=== PATIENT | female | born 1980 | race Caucasian/White ===

== ENCOUNTER 2017-07-03 22:23 | Outpatient (CLI) | payer OTHER ==
[~2017-07-03] VITALS: Ht 167.6 cm; Wt 141.0 kg
[2017-07-03 23:28] VITALS: Ht 167.6 cm; Wt 141.0 kg
[2017-07-03 23:29] VITALS: BP 114/62; RESP 18
[2017-07-04] MEDS ORDERED: DIPHENHYDRAMINE 50 MG INJ IM ONE (00:30)
[2017-07-04] MEDS ORDERED: URSODIOL 300 MG CAP PO ONE (00:30)
[2017-07-04 00:45] LABS: ALBUMIN 3.1 g/dl (3.3-4.9); ALBUMIN/GLOBULIN RATIO 0.93; BILIRUBIN,INDIRECT 0.1 mg/dl (0-1.1); BILIRUBIN,TOTAL 0.1 mg/dl (0.2-1.3); CALCIUM 9.1 mg/dl (8.4-10.2); CREATININE 0.78 mg/dl (0.44-1.00); TOTAL PROTEIN 6.4 g/dl (6.1-8.1)
[2017-07-04] MEDS ORDERED: DIPHENHYDRAMINE 25 MG CAP PO ONE (01:00)
[2017-07-04 01:13] LABS: BASOPHILS % 0.2 % (0.0-2.0); EOSINOPHILS % 0.1 % (0.0-7.0); HEMATOCRIT 32.9 % (37.0-47.0); HEMOGLOBIN 10.8 g/dl (12.0-16.0); LYMPHOCYTES # 1.8 10^3/ul (0.8-2.9); LYMPHOCYTES % 20.8 % (15.0-51.0); MEAN CORPUSCULAR HGB CONC 32.8 g/dl (32.0-37.0); MEAN CORPUSCULAR VOLUME 88.4 fl (82.0-101.0); MEAN PLATELET VOLUME 11.3 fl (7.4-10.4); MONOCYTE # 0.6 10^3/ul (0.3-0.9); MONOCYTES % 6.4 % (0.0-11.0); NEUTROPHIL # 6.3 10^3/ul (1.6-7.5); PLATELET COUNT 203 10^3/UL (140-415); RED BLOOD COUNT 3.72 10^6/ul (4.20-5.40); WHITE BLOOD COUNT 8.7 10^3/ul (4.8-10.8)
--- NOTE | 2017-07-04 04:38 | TRIAGE ---
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 ANDRÉS AT BEDSIDE ASSISTING W/ U/S ADJUSTMENT Datetime: 07/04/2017 01:00 Stage of : OB Triage Labor Evaluation Frequency: X0 Monitor Mode: External Resting Tone [place]: Relaxed Heart Rate FHR Baseline Rate: 140 Monitor Mode: External US Variability: Moderate 6-25 bpm Accelerations: 15X15 Decelerations: None Category: Category I Datetime: 07/04/2017 00:00 Stage of : OB Triage Labor Evaluation Frequency: X0 Monitor Mode: External Resting Tone [place]: Relaxed Contraction Comments: IRRITABILITY Heart Rate FHR Baseline Rate: 140 Monitor Mode: External US Variability: Moderate 6-25 bpm Accelerations: 15X15 Decelerations: None Category: Category I Datetime: 07/03/2017 23:01 Assessment Type: Triage Maternal Assessment Level of Consciousness: Fully Conscious DTR's/Clonus: DTRs 2+; No Clonus Headache: Denies Blurred Vision: No Respiratory Effort: Unlabored; Regular Rhythm; Equal Expansion Breath Sounds, Left: Clear and Equal Breath Sounds, Right: Clear and Equal Nausea/Vomiting: Denies RUQ Epigastric Pain: Denies Lower Extremities Edema: Bilateral Lower Extremities Degree: 1+ Upper Extremities Edema: None Degree: None Facial Edema: None Temperature Route: Oral Fall Risk Assessment History of Falling: (0) No Secondary Diagnosis: (0) No Ambulatory Aid: (0) Bedrest/Nurse Assist IV Therapy: (0) No Gait: (0) Normal/Bedrest/Immobile Mental Status: (0) Oriented to Own Ability Fall Score: 0 Fall Risk Score Definition: No Risk: No action required Comment: GA 29.0 WKS TWIN W/ GDM DIET CONTROLLED. PT PRESENTED HERSELF TO TRIAGE W/ C/O GENERALIZED ITCHING _ RASHES. HX OF CHOLESTASIS 2ND . Pain Assessment Pain Scale: 0 Pain Presence: None/Denies Pain Type: N/A Pain Goal: 0 Datetime: 07/03/2017 22:51 EGA: 29.0 Datetime: 07/03/2017 22:50 Stage of : OB Triage Time of Arrival: 07/03/2017 22:15 Arrived By: Wheelchair Arrived From: Home Chief Complaint: GENERALIZED ITCHING _ RASHES Movement: Present Contractions: Denies/Absent Rupture of Membranes: Denies Vaginal Bleeding: None Vaginal Discharge: Denies Recent Sexual Intercouse: Denies Abdominal Trauma: Not Applicable Patient Complaints: Other Time Provider Notified: 07/03/2017 23:32 Provider Notified: LIZY Initial Plan: KELLY STONER NOTIFY MD
--- NOTE | 2017-07-04 08:01 | PN ---
Triage Information Date/Time Reason for visit: Generalized rash with itching Weeks of Gestation 29 /Para Diabetes: gestational Hypertention: none Additional information 37 Year-old with SIUP at 29 wks with twins, GDM A1 and h/o cholestasis in prior presents with a chief complaint of generalized rash and itching. She has been receiving her care with Dr. galvez. She states good movement. She denies nausea, vomiting, shortness of breath, chest pain, and abdominal pain between contractions, headache, visual changes, vaginal bleeding or LOF. Objective Vital Signs Date Time Temp Pulse Resp B/P Pulse Ox O2 Delivery O2 Flow Rate FiO2 07/03/17 23:29 98.6 18 114/62 Room Air Contractions: None Exam General: Patient appears well, alert and oriented, NAD, appropriate mood and affect Skin: Generalized maculopapular rash ABD: gravid, soft, non-tender. Back: No CVA tenderness (B/L) LE: No clubbing, cyanosis, edema, thigh or calf tenderness bilaterally FHTs: 135 and 140 bpm , moderate variability with acceleration, no deceleration- category I Contractions: None Results/Medications Result Diagram: 07/03/17 2358 07/04/17 0002 Results 24 hrs Laboratory Tests Test 07/03/17 23:58 07/04/17 00:02 White Blood Count 8.7 Red Blood Count 3.72 L Hemoglobin 10.8 L Hematocrit 32.9 L Mean Corpuscular Volume 88.4 Mean Corpuscular Hemoglobin 29.0 Mean Corpuscular Hemoglobin Concent 32.8 Red Cell Distribution Width 13.0 Platelet Count 203 Mean Platelet Volume 11.3 H Neutrophils % 72.0 Lymphocytes % 20.8 Monocytes % 6.4 Eosinophils % 0.1 Basophils % 0.2 Nucleated Red Blood Cells % 0.0 Neutrophils # 6.3 Lymphocytes # 1.8 Monocytes # 0.6 Eosinophils # 0.0 Basophils # 0.0 Nucleated Red Blood Cells # 0.0 Sodium Level 138 Potassium Level 4.0 Chloride Level 106 Carbon Dioxide Level 26 Anion Gap 10 Blood Urea Nitrogen 11 Creatinine 0.78 Glucose Level 155 Calcium Level 9.1 Total Bilirubin 0.1 L Direct Bilirubin 0.00 Indirect Bilirubin 0.1 Aspartate Amino Transf (AST/SGOT) 23 Alanine Aminotransferase (ALT/SGPT) 44 Alkaline Phosphatase 93 Total Protein 6.4 Albumin 3.1 L Globulin 3.30 H Albumin/Globulin Ratio 0.93 Disposition: Discharge Assessment/Plan 37 Year-old with SIUP at 29 wks with twins, GDM A1 and h/o cholestasis in prior with generalized rash and itching - FHR: No sign of metabolic acidosis- Category I - Continuous EFM, toco - Contractions: None. - CBC, CMP: wnl, Bile acid is pending - Benadryl 25 mg PO given. Rx for actigal and hydroxyzine given. - Symptoms and sign of labor, preeclampsia, kick count discussed with patient, she voiced understanding. All of her questions answered. - Patient was discharged home in stable condition with the appropriate discharge instructions provided. I would like patient to have close follow-up with her primary physician or outpatient clinic in 1-2 days or return to the ER for worsening symptoms or any other urgent concerns. FLORY CAMEJO Jul 04, 2017 08:01
== END 2017-07-04 03:09 | disposition home or self-care (01) ==
LOC: OBT 22:23 → L-D 22:26 → OBT 07-04 03:09
PROVIDERS: ATTEND Specialist
DX: O26.893 Other specified pregnancy related conditions, third trimester (principal); Z3A.29 29 weeks gestation of pregnancy; R21 Rash and other nonspecific skin eruption; L29.9 Pruritus, unspecified
CPT/HCPCS: 80053; 83789; 85025; Z7500; Z7610; G0463

== ENCOUNTER 2017-07-12 23:08 | Outpatient (CLI) | payer OTHER ==
[~2017-07-12] VITALS: Ht 167.6 cm; Wt 141.5 kg
[2017-07-12 23:41] VITALS: BP 119/62; PULSE 90; RESP 18
[2017-07-12] MEDS ORDERED: PREN-6 PO (23:44)
--- NOTE | 2017-07-13 01:28 | RADRPT ---
PROCEDURE: OB ultrasound for biophysical profile CLINICAL INDICATION: labor. TECHNIQUE: Multiple sonographic images of the gravid uterus performed. The images were reviewed on a PACS workstation. COMPARISON: None FINDINGS: A twin live intrauterine is identified. Fetus 1 There is a heart rate of 144 bpm. Fetus is in a cephalic presentation. Placenta is located anterior. Biophysical profile: breathing movement = 2/2 tone = 2/2 motion = 2/2 RIANA = 2/2 Amniotic fluid MVP = 5.2 cm. Fetus 2 There is a heart rate of 136 bpm. Fetus is in a cephalic presentation. Placenta is located anterior. Biophysical profile: breathing movement = 2/2 tone = 2/2 motion = 2/2 RIANA = 2/2 Amniotic fluid MVP = 5.2 cm. IMPRESSION: 1. Twin live intrauterine gestation. 2. Twin 1 Biophysical profile = 8/8. MVP = 5.2 cm. 3. Twin 2 Biophysical profile = 8/8. MVP = 5.2 cm. RPTAT: HMVK .González Baron MD, MD Date Time Electronically viewed and signed by .González Baron MD, MD on 07/13/2017 01:28 .K/
--- NOTE | 2017-07-13 02:55 | TRIAGE ---
OB Triage Datetime Report Generated by CPN: 07/13/2017 02:55 Datetime: 07/13/2017 00:50 Stage of : OB Triage Heart Rate FHR Baseline Rate: 145 Datetime: 07/13/2017 00:16 Stage of : OB Triage Datetime: 07/12/2017 23:57 Stage of : OB Triage Monitor Mode: External Resting Tone [place]: Relaxed Comments: Babies audibly active but difficult to monitor d/t twins and pt obesity Datetime: 07/12/2017 23:30 Time of Arrival: 07/12/2017 22:58 EGA: 30.2 Arrived By: Wheelchair Arrived From: Home Chief Complaint: c/o coughing x 3 days, side pain, sore throat and congestion Movement: Present Contractions: Denies/Absent Rupture of Membranes: Denies Vaginal Bleeding: None Vaginal Discharge: Denies Recent Sexual Intercouse: Denies Abdominal Trauma: Not Applicable Patient Complaints: Cough; Runny Nose Additional Patient Complaints: Twin gestation, A1DM Time Provider Notified: 07/13/2017 00:16 Provider Notified: Dr Xiong Initial Plan: EFM,BPP,SEND ER FOR URI EVAL Datetime: 07/12/2017 23:13 Stage of : OB Triage Maternal Assessment Level of Consciousness: Fully Conscious Headache: Denies Blurred Vision: No Respiratory Effort: Unlabored Nausea/Vomiting: Denies RUQ Epigastric Pain: Denies Facial Edema: None Labor Evaluation Frequency: placed Monitor Mode: External Resting Tone [place]: Relaxed Heart Rate FHR Baseline Rate: 150 Monitor Mode: External US Pain Assessment Pain Scale: 6 Pain Presence: Constant Pain Type: Sharp; Stabbing Pain Location: Abdomen Pain Assessment Comments: Pt c/o pain uppr abd both sides with coughing Datetime: 07/03/2017 23:01 Fall Risk Assessment Fall Score: 0 Fall Risk Score Definition: No Risk: No action required Datetime: 07/03/2017 22:51 EGA: 29.0
[2017-07-13] MEDS ORDERED: GUAI120S26 PO (03:01)
[2017-07-13] MEDS ORDERED: ACET325T33 PO (03:02)
--- NOTE | 2017-07-13 06:34 | PN ---
Triage Information Date/Time 07/12/2017 Reason for visit: Upper abdominal pain Weeks of Gestation 30- weeks and 2 days /Para Diabetes: none Hypertention: none Additional information 38 years old with IUP at 30 weeks and 2 days and care with Dr[address] Juan Streeter presented with complaint of upper abdominal pain in the right and left when she coughs < 2 days Has sick contact. Thought there was also sake. She denies any fever, chills, leaking of fluid, vaginal bleeding or decreased movement. OB history significant for history of GDM A1. She also has history of itching of the body in prior visit on July 03, 2017. She had her bile acids checked that are normal limits as well as her LFTs. Objective Vital Signs Date Time Temp Pulse Resp B/P Pulse Ox O2 Delivery O2 Flow Rate FiO2 07/12/17 23:41 98.7 90 18 119/62 Room Air Heart Rate: 120's Contractions: None Exam General appearance: Alert and oriented 4. Does appear to be in moderate distress due to cough Lungs: No rales or rhonchus noted. Appears to be clear in auscultation bilaterally CV: RRR Extremities: No calf tenderness, no click no edema Abdomen: Soft, gravid, fundal height larger than gestational age due to twin gestation. Babies are active during NST. Difficulty of monitoring due to persistent movement noted BPP: 03/21 Results/Medications Imaging Results PROCEDURE: OB ultrasound for biophysical profile CLINICAL INDICATION: labor. TECHNIQUE: Multiple sonographic images of the gravid uterus performed. The images were reviewed on a PACS workstation. COMPARISON: None FINDINGS: A twin live intrauterine is identified. Fetus 1 There is a heart rate of 144 bpm. Fetus is in a cephalic presentation. Placenta is located anterior. Biophysical profile: breathing movement = 2/2 tone = 2/2 motion = 2/2 RIANA = 2/2 Amniotic fluid MVP = 5.2 cm. Fetus 2 There is a heart rate of 136 bpm. Fetus is in a cephalic presentation. Placenta is located anterior. Biophysical profile: breathing movement = 2/2 tone = 2/2 motion = 2/2 RIANA = 2/2 Amniotic fluid MVP = 5.2 cm. IMPRESSION: 1. Twin live intrauterine gestation. 2. Twin 1 Biophysical profile = /8. MVP = 5.2 cm. 3. Twin 2 Biophysical profile = 8/. MVP = 5.2 cm. RPTAT: HMVK .González Baron MD, Date Time Electronically viewed and signed by .González Baron MD, MD on 07/13/2017 01:28 .K/ CC: JERILYN KEMP MD Disposition: Discharge Assessment/Plan IUP at 30 weeks and 2 days Twin gestation No evidence of labor or PPROM Cough. URI Upper abdominal pain with coughing likely musculoskeletal Patient will be sent to emergency room for evaluation and treatment of URI Strict labor precaution and kick count and follow-up with her OB office if discharged from ED within 24-48 hours discussed with the patient. Patient verbalized understanding Questions were answered. JERILYN KEMP MD Jul 13, 2017 06:34
== END 2017-07-13 02:22 | disposition home or self-care (01) ==
LOC: OBT 23:08 → L-D 23:10 → OBT 07-13 02:22
PROVIDERS: ATTEND Specialist
DX: O30.043 Twin pregnancy, dichorionic/diamniotic, third trimester (principal); Z3A.30 30 weeks gestation of pregnancy; R05 Cough
CPT/HCPCS: 76818; G0463

== ENCOUNTER 2017-07-13 02:29 | Emergency (ER) | payer OTHER ==
[~2017-07-13] VITALS: Ht 165.1 cm; Wt 140.9 kg
[~2017-07-13 02:29] MED LIST: PREN-6 PO
[2017-07-13 02:38] VITALS: Ht 165.1 cm; Wt 140.9 kg
[2017-07-13] MEDS ORDERED: GUAI120S26 PO (03:01)
[2017-07-13] MEDS ORDERED: ACET325T33 PO (03:02)
--- NOTE | 2017-07-13 03:05 | ERD ---
ER Documentation Chief Complaint Chief Complaint cough x 3 days, ST x 2 days, 30 wks preg - cleared by L&D already HPI The patient is a 37-year-old female, presenting to the ER because of cough for 3 days, sore throat for 2 days, denies fever, nasal congestion, nasal discharge , neck pain, chest pain, dyspnea, abdominal pain, vomiting, dysuria, diarrhea. She does not smoke nor drink, 5 para 3 1 Past medical history: None Past surgical history: D&C ROS All systems reviewed and are negative except as per history of present illness. Medications Home Meds Active Scripts Acetaminophen* (Tylenol*) 325 Mg Tablet, 650 MG PO Q4H Y for MILD PAIN LEVEL 1-3 , #30 TAB Prov:MARGE BORREGO MD 07/13/17 Detazokoihq-W-Svtlyiyqkq Hb* (Guaifenesin* DM Syrup) 120 Ml Syrup, 10 ML PO Q4H Y for COUGH, #120 ML Prov:MARGE BORREGO MD 07/13/17 Reported Medications Vits #93-Iron Fum-FA ( Formula) 1 Each Tablet, 1 TAB PO DAILY, TAB 07/12/17 Allergies Allergies: Coded Allergies: iodine (Verified Allergy, Severe, 07/13/17) ketorolac (Verified Allergy, Severe, 07/13/17) PMhx/Soc Medical and Surgical Hx: pt denies Medical Hx, pt denies Surgical Hx History of Surgery: Yes (D&C) Anesthesia Reaction: No Hx Neurological Disorder: No Hx Respiratory Disorders: No Hx Cardiac Disorders: No Hx Psychiatric Problems: No Hx Miscellaneous Medical Probl: No Hx Alcohol Use: No Hx Substance Use: No Hx Tobacco Use: No Smoking Status: Never smoker Physical Exam Vitals Vital Signs Date Time Temp Pulse Resp B/P Pulse Ox O2 Delivery O2 Flow Rate FiO2 07/13/17 02:38 97.2 85 20 123/69 98 Physical Exam Const: No acute distress. Head: Atraumatic. Eyes: Normal Conjunctiva. ENT: Normal External Ears, Nose and Mouth.Bilateral tympanic membrane and oropharynx are within normal limits Neck: Full range of motion. No meningismus. Resp: Clear to auscultation bilaterally. Cardio: Regular rate and rhythm. Abd: Soft, Gravid, normal bowel sounds, non tender. Skin: No petechiae or rashes. Back: No midline or flank tenderness. Ext: No cyanosis, or edema. Neur: Awake and alert. No focal deficit Psych: Normal Mood and Affect. Procedures/MDM MEDICAL MAKING DECISION: The patient is a 37-year-old female, presenting with acute viral syndrome, is stable for outpatient follow-up. The differential diagnoses considered include but are not limited to influenza, pneumonia, cystitis, bronchitis. Departure Diagnosis: Primary Impression: Viral syndrome Condition: Good Patient Instructions: Viral Syndrome (Adult) Additional Instructions: She was discharged with Robitussin-DM and Tylenol Call your primary care doctor TOMORROW for an appointment during the next 2-3 days.See the doctor sooner or return here if your condition worsens before your appointment time. MARGE BORREGO MD Jul 13, 2017 03:05
== END 2017-07-13 03:20 | disposition home or self-care (01) ==
LOC: FTE 02:29
DX: B34.9 Viral infection, unspecified (principal)
CPT/HCPCS: 99283

== ENCOUNTER 2017-07-25 15:17 | Outpatient (CLI) | payer OTHER ==
[~2017-07-25] VITALS: Ht 167.6 cm; Wt 142.7 kg
[~2017-07-25 15:17] MED LIST changes: +ACET325T33 PO; +GUAI120S26 PO
[2017-07-25 15:39] VITALS: Ht 167.6 cm; Wt 142.7 kg
[2017-07-25] MEDS ORDERED: FER325 PO (15:39)
[2017-07-25 15:40] VITALS: BP 116/66; PULSE 75; RESP 18
[2017-07-25 16:10] LABS: BASOPHILS % 0.2 % (0.0-2.0); HEMATOCRIT 31.5 % (37.0-47.0); HEMOGLOBIN 10.6 g/dl (12.0-16.0); LYMPHOCYTES # 2.2 10^3/ul (0.8-2.9); LYMPHOCYTES % 24.1 % (15.0-51.0); MEAN CORPUSCULAR HEMOGLOBIN 29.4 pg (29.0-33.0); MEAN CORPUSCULAR HGB CONC 33.7 g/dl (32.0-37.0); MEAN CORPUSCULAR VOLUME 87.3 fl (82.0-101.0); MEAN PLATELET VOLUME 11.2 fl (7.4-10.4); MONOCYTE # 0.7 10^3/ul (0.3-0.9); MONOCYTES % 8.2 % (0.0-11.0); NEUTROPHIL # 6.1 10^3/ul (1.6-7.5); NEUTROPHILS % 67.1 % (39.0-77.0); PLATELET COUNT 181 10^3/UL (140-415); RED BLOOD COUNT 3.61 10^6/ul (4.20-5.40); RED CELL DISTRIBUTION WIDTH 13.4 % (11.5-14.5)
--- NOTE | 2017-07-25 16:16 | RADRPT ---
PROCEDURE: US OB. CLINICAL INDICATION: Contraction TECHNIQUE: Multiple sonographic images of the pelvis were obtained. The images were reviewed on a PACS workstation. COMPARISON: No prior studies are available for comparison. FINDINGS: There twin live intrauterine . Baby A: cardiac activity is identified at a rate of 144 beats per minute. presentation is cephalic. There share anterior placenta grade 1 to II Biophysical profile score is as follows: Breathing 2 Movements 2 Tone 2 Fluid volume 2 Single largest pocket of amniotic fluid measures 3.4 cm Total biophysical profile score = 8/8 Baby B: cardiac activity is identified at a rate of 130 beats per minute. presentation is transverse to the maternal right. There is shared anterior placenta grade 1 to Biophysical profile score is as follows: Breathing 2 Movements 2 Tone 2 Fluid volume 2 Single largest pocket of amniotic fluid measures 4.4 cm Total biophysical profile score = 8/8 IMPRESSION: Twin Baby A: Biophysical profile score = 8/8 BabyB: Biophysical profile score = 8/8 RPTAT: .Gregory Mondragon MD, Date Time Electronically viewed and signed by .Gregory Mondragon MD, on 07/25/2017 16:15 .W/
[2017-07-25 16:23] LABS: ADD UMIC NO; UR ASCORBIC ACID NEGATIVE (NEGATIVE); UR BILIRUBIN (Dip) NEGATIVE (NEGATIVE); UR BLOOD (Dip) NEGATIVE (NEGATIVE); UR CLARITY CLEAR (CLEAR); UR COLOR YELLOW (YELLOW); UR GLUCOSE (Dip) 1+ mg/dL (NEGATIVE); UR KETONES (Dip) NEGATIVE (NEGATIVE); UR LEUKOCYTE ESTERASE (Dip) NEGATIVE Leu/ul (NEGATIVE); UR NITRITE (Dip) NEGATIVE (NEGATIVE); UR TOTAL PROTEIN (Dip) NEGATIVE (NEGATIVE); UR UROBILINOGEN (Dip) NEGATIVE (NEGATIVE)
[2017-07-25 16:28] LABS: PROTIME 13.3 Sec (11.9-14.9)
[2017-07-25 16:29] LABS: PARTIAL THROMBOPLASTIN TIME 26.5 Sec (25.0-35.0)
[2017-07-25 16:31] LABS: ALBUMIN 3.2 g/dl (3.3-4.9); ALBUMIN/GLOBULIN RATIO 0.94; BILIRUBIN,INDIRECT 0.3 mg/dl (0-1.1); BILIRUBIN,TOTAL 0.3 mg/dl (0.2-1.3); CALCIUM 9.2 mg/dl (8.4-10.2); CREATININE 0.6 mg/dl (0.44-1.00); POTASSIUM 4.3 mmol/L (3.5-5.1); TOTAL PROTEIN 6.6 g/dl (6.1-8.1); URIC ACID 4.1 mg/dl (3.1-7.9)
--- NOTE | 2017-07-25 16:59 | PN ---
Triage Information Date/Time Reason for visit: BP monitor Weeks of Gestation 33+ /Para 5/3 Diabetes: none Hypertention: none Objective Vital Signs Date Time Temp Pulse Resp B/P Pulse Ox O2 Delivery O2 Flow Rate FiO2 07/25/17 15:40 97.2 75 18 116/66 Room Air Heart Rate: 140's Contractions: None Results/Medications Result Diagram: 07/25/17 1550 07/25/17 1550 Results 24 hrs Laboratory Tests Test 07/25/17 15:50 White Blood Count 9.0 Red Blood Count 3.61 L Hemoglobin 10.6 L Hematocrit 31.5 L Mean Corpuscular Volume 87.3 Mean Corpuscular Hemoglobin 29.4 Mean Corpuscular Hemoglobin Concent 33.7 Red Cell Distribution Width 13.4 Platelet Count 181 Mean Platelet Volume 11.2 H Neutrophils % 67.1 Lymphocytes % 24.1 Monocytes % 8.2 Eosinophils % 0.0 Basophils % 0.2 Nucleated Red Blood Cells % 0.0 Neutrophils # 6.1 Lymphocytes # 2.2 Monocytes # 0.7 Eosinophils # 0.0 Basophils # 0.0 Nucleated Red Blood Cells # 0.0 Prothrombin Time 13.3 Prothrombin Time Ratio 1.0 INR International Normalized Ratio 1.00 Activated Partial Thromboplast Time 26.5 Fibrinogen 492.0 H Urine Color YELLOW Urine Clarity CLEAR Urine pH 6.0 Urine Specific [place] 1.020 Urine Ketones NEGATIVE Urine Nitrite NEGATIVE Urine Bilirubin NEGATIVE Urine Urobilinogen NEGATIVE Urine Leukocyte Esterase NEGATIVE Urine Hemoglobin NEGATIVE Urine Glucose 1+ H Urine Total Protein NEGATIVE Sodium Level 139 Potassium Level 4.3 Chloride Level 107 Carbon Dioxide Level 23 Anion Gap 13 Blood Urea Nitrogen 12 Creatinine 0.60 Glucose Level 83 Uric Acid 4.1 Calcium Level 9.2 Total Bilirubin 0.3 Direct Bilirubin 0.00 Indirect Bilirubin 0.3 Aspartate Amino Transf (AST/SGOT) 33 Alanine Aminotransferase (ALT/SGPT) 55 Alkaline Phosphatase 124 H Total Protein 6.6 Albumin 3.2 L Globulin 3.40 H Albumin/Globulin Ratio 0.94 Disposition: Discharge Assessment/Plan BP monitor Labs reviewed Ultrasound reviewed DAIN ATTE M.D. Jul 25, 2017 16:59
--- NOTE | 2017-07-25 17:06 | TRIAGE ---
OB Triage Datetime Report Generated by CPN: 07/25/2017 17:06 Datetime: 07/25/2017 16:56 Stage of : OB Triage Maternal Assessment Level of Consciousness: Fully Conscious Labor Evaluation Frequency: 1UC/HR Monitor Mode: External Duration (sec)2399: 140 Quality: Mild Pattern: Normal: <= 5 Contractions in 10 Minutes Resting Tone [place]: Relaxed Pain Assessment Pain Scale: 0 Pain Goal: 3 Vaginal Exam Membrane Status: Intact Vaginal Bleeding: None Datetime: 07/25/2017 16:00 Stage of : OB Triage Maternal Assessment Level of Consciousness: Fully Conscious Labor Evaluation Frequency: 2-4 Monitor Mode: External Duration (sec)2399: 70-130 Quality: Mild Pattern: Normal: <= 5 Contractions in 10 Minutes Resting Tone [place]: Relaxed Heart Rate FHR Baseline Rate: 135 Monitor Mode: External US Variability: Moderate 6-25 bpm Accelerations: 15X15 Decelerations: None Category: Category I Pain Assessment Pain Scale: 0 Pain Goal: 3 Vaginal Exam Membrane Status: Intact Vaginal Bleeding: None Datetime: 07/25/2017 15:36 Assessment Type: Triage Maternal Assessment Level of Consciousness: Fully Conscious DTR's/Clonus: DTRs 2+; No Clonus Headache: Denies Blurred Vision: No Respiratory Effort: Unlabored; Regular Rhythm; Equal Expansion Breath Sounds, Left: Clear and Equal Breath Sounds, Right: Clear and Equal Nausea/Vomiting: Denies RUQ Epigastric Pain: Denies Lower Extremities Edema: Bilateral Lower Extremities Degree: 1+ Upper Extremities Edema: None Degree: None Facial Edema: None Fall Risk Assessment History of Falling: (0) No Secondary Diagnosis: (0) No Ambulatory Aid: (0) Bedrest/Nurse Assist IV Therapy: (0) No Gait: (0) Normal/Bedrest/Immobile Mental Status: (0) Oriented to Own Ability Fall Score: 0 Fall Risk Score Definition: No Risk: No action required Datetime: 07/25/2017 15:34 Time of Arrival: 07/25/2017 15:07 EGA: 32.1 Arrived By: Ambulatory Arrived From: Dr. Office Chief Complaint: pt sent from clinic for EVAL. OF HBP Movement: Present Contractions: Denies/Absent Rupture of Membranes: Denies Vaginal Bleeding: None Vaginal Discharge: Denies Recent Sexual Intercouse: Denies Abdominal Trauma: Not Applicable Patient Complaints: None Time Provider Notified: 07/25/2017 16:50 Provider Notified: FREDY Initial Plan: PIH PANEL/BPP Datetime: 07/25/2017 15:30 Monitor Mode: External Monitor Mode: External US Datetime: 07/13/2017 01:50 Stage of : OB Triage Monitor Mode: External Pattern: Normal: <= 5 Contractions in 10 Minutes Resting Tone [place]: Relaxed Heart Rate FHR Baseline Rate: 135 Monitor Mode: External US Variability: Moderate 6-25 bpm Accelerations: 15X15 Datetime: 07/12/2017 23:30 EGA: 30.2 Datetime: 07/03/2017 23:01 Fall Score: 0 Fall Risk Score Definition: No Risk: No action required Datetime: 07/03/2017 22:51 EGA: 29.0
== END 2017-07-25 17:15 | disposition home or self-care (01) ==
LOC: OBT 15:17 → L-D 15:18 → OBT 17:15
PROVIDERS: ATTEND Specialist
DX: O16.3 Unspecified maternal hypertension, third trimester (principal); Z3A.33 33 weeks gestation of pregnancy
CPT/HCPCS: 36415; 76818; 80053; 81003; 84560; 85025; 85384; 85610; 85730; Z7500; G0463

== ENCOUNTER 2017-08-06 16:10 | Inpatient (IN) | END 2017-08-10 13:30 | disposition home or self-care (01) | DRG 765 ==